=== PATIENT | female | born 1960 | race African-American/Black ===

== ENCOUNTER 2020-06-10 16:59 | Inpatient (IN) | payer OTHER ==
[~2020-06-10] VITALS: Ht 167.6 cm; Wt 121.6 kg
[2020-06-10] MEDS ORDERED: ONDANSETRON HCL 4MG/2ML INJ IV STA (17:19)
[2020-06-10] MEDS ORDERED: MORPHINE SULFATE 4 MG/ML CPJ (NOT FOR IM USE) IV STA (17:19)
[2020-06-10] MEDS ORDERED: NITROGLYCERIN OINT 1GM/INCH UDPKT TD ONE (17:30)
[2020-06-10] MEDS ORDERED: ENALAPRIL 1.25MG/ML VIAL 1ML IV NR (17:30)
[2020-06-10] MEDS ORDERED: MORPHINE SULFATE 4 MG/ML CPJ (NOT FOR IM USE) IV NR (17:30)
[2020-06-10] MEDS ORDERED: ENALAPRIL 2.5MG/2ML VIAL 2ML IV ONE (17:30)
[2020-06-10] MEDS ORDERED: NITROGLYCERIN OINT 1GM/INCH UDPKT TD NR (17:30)
[2020-06-10] MEDS ORDERED: ONDANSETRON HCL 4MG/2ML INJ IV NR (17:30)
[2020-06-10] MEDS ORDERED: ASPIRIN 81MG TABLET PO ONE (18:45)
[2020-06-10 19:16] LABS: CHLORIDE 103 mEq/L (98-107)
[2020-06-10 19:21] LABS: BASOPHILS % 0.9 % (0.0-2.0); EOSINOPHILS % 0.2 % (0.0-5.0); LYMPHOCYTES % 11.1 % (20.0-50.0); MEAN CORPUSCULAR HEMOGLOBIN 21.4 pg (28.0-32.0); MEAN CORPUSCULAR VOLUME 67.9 fL (81.0-99.0); MEAN PLATELET VOLUME 9.7 fl (7.4-10.4); MONOCYTES % 3.8 % (2.0-8.0); PLATELET 212 x1000/uL (130-400); RED CELL DISTRIBUTION WIDTH 18.8 % (11.6-14.6)
[2020-06-10] MEDS ORDERED: ACETAMINOPHEN 325MG TABLET PO ONE (19:45)
[2020-06-10 20:15] LABS: PLATELET ESTIMATE NORMAL
[2020-06-10] MEDS ORDERED: AMLODIPINE 10MG TABLET PO SCH (20:15)
[2020-06-10] MEDS ORDERED: ONDANSETRON HCL 4MG/2ML INJ IV PRN (20:15)
[2020-06-10] MEDS ORDERED: TRAZODONE HCL 50MG TABLET PO PRN (21:00)
[2020-06-10 21:47] LABS: *AMPHETAMINES SCREEN URINE NEGATIVE (NEGATIVE); *BARBITURATES SCREEN URINE NEGATIVE (NEGATIVE); *BENZODIAZEPINES SCREEN URINE NEGATIVE (NEGATIVE); *COCAINE SCREEN URINE NEGATIVE (NEGATIVE); METHADONE URINE SCREEN NEGATIVE (NEGATIVE); OPIATES URINE SCREEN NEGATIVE (NEGATIVE)
[2020-06-10 21:48] LABS: CANNABINOID URINE SCREEN NEGATIVE (NEGATIVE); PHENCYCLIDINE URINE SCREEN NEGATIVE (NEGATIVE)
[2020-06-10 23:10] VITALS: BP 161/80
[2020-06-10 23:15] VITALS: BP 161/80
[2020-06-11] MEDS: ACETAMINOPHEN 325MG TABLET PO PRN ×3 (01:37→20:48)
[2020-06-11] MEDS: HYDRALAZINE HCL 50MG TABLET PO SCH ×4 (01:38→22:05)
[2020-06-11] MEDS ORDERED: AMOX-494 MT (01:58)
[2020-06-11 04:00] VITALS: BP 141/76
[2020-06-11] MEDS: KETOROLAC 15MG/ML VIAL IV PRN ×2 (07:29→18:13)
[2020-06-11 07:52] LABS: BASOPHILS % 0.8 % (0.0-2.0); EOSINOPHILS % 0.4 % (0.0-5.0); HEMATOCRIT. 41.3 % (36.0-48.0); HEMOGLOBIN. 12.9 g/dL (12.0-16.0); LYMPHOCYTES % 21.1 % (20.0-50.0); MEAN CORPUSCULAR VOLUME 67.4 fL (81.0-99.0); MEAN PLATELET VOLUME 10.5 fl (7.4-10.4); MONOCYTES % 10.1 % (2.0-8.0); NEUTROPHILS % 67.6 % (40.0-76.0); PLATELET 202 x1000/uL (130-400); RED BLOOD CELL COUNT 6.13 mill/uL (4.2-5.4); RED CELL DISTRIBUTION WIDTH 18.7 % (11.6-14.6)
[2020-06-11 08:00] VITALS: BP 112/61
[2020-06-11 08:00] LABS: CHLORIDE 103 mEq/L (98-107)
[2020-06-11] MEDS: HEPARIN 5000 UNITS/ML VIAL SUBCUT SCH ×3 (08:55→21:54)
[2020-06-11 12:00] VITALS: BP 127/63
[2020-06-11 16:00] VITALS: BP 168/93
[2020-06-11 18:00] VITALS: BP 142/86
[2020-06-11 20:00] VITALS: BP 177/74
[2020-06-11] MEDS: AMLODIPINE 2.5MG TABLET PO SCH (20:49)
[2020-06-11] MEDS: TRAZODONE HCL 50MG TABLET PO SCH (20:49)
[2020-06-11] MEDS ORDERED: TRAZODONE HCL 50MG TABLET PO SCH (21:00)
[2020-06-12] VITALS (9 sets, daily range): BP systolic 135–186; BP diastolic 76–101
[2020-06-12] MEDS: KETOROLAC 15MG/ML VIAL IV PRN (00:44)
[2020-06-12] MEDS: ACETAMINOPHEN 325MG TABLET PO PRN ×2 (05:06→22:17)
[2020-06-12 06:18] LABS: CHLORIDE 107 mEq/L (98-107)
[2020-06-12 06:45] LABS: BASOPHILS % 0.4 % (0.0-2.0); EOSINOPHILS % 1.4 % (0.0-5.0); HEMATOCRIT. 40.3 % (36.0-48.0); HEMOGLOBIN. 12.5 g/dL (12.0-16.0); LYMPHOCYTES % 23.5 % (20.0-50.0); MEAN CORPUSCULAR HEMOGLOBIN 21.2 pg (28.0-32.0); MEAN CORPUSCULAR VOLUME 68.4 fL (81.0-99.0); MONOCYTES % 9.2 % (2.0-8.0); NEUTROPHILS % 65.5 % (40.0-76.0); RED CELL DISTRIBUTION WIDTH 18.5 % (11.6-14.6)
[2020-06-12] MEDS: DOCUSATE SODIUM 100MG CAPSULE PO SCH (09:20)
[2020-06-12] MEDS: BISACODYL 10MG SUPP PR NR ×2 (09:20→09:45)
[2020-06-12] MEDS: AMLODIPINE 2.5MG TABLET PO SCH (09:20)
[2020-06-12] MEDS: HEPARIN 5000 UNITS/ML VIAL SUBCUT SCH ×2 (09:21→20:51)
[2020-06-12] MEDS ORDERED: MAGNESIUM CITRATE 300ML SOLUTION PO NR (10:30)
[2020-06-12 11:36] LABS: PLATELET 166 x1000/uL (130-400)
[2020-06-12] MEDS ORDERED: TRAZ-251 PO (12:30)
[2020-06-12] MEDS ORDERED: AMLO5TAB88 PO (12:30)
[2020-06-12] MEDS ORDERED: DOCU-150 PO (12:30)
[2020-06-12] MEDS ORDERED: TOPUD PO (12:30)
[2020-06-12] MEDS ORDERED: HYDR-4134 PO (12:30)
[2020-06-12] MEDS: HYDRALAZINE HCL 25MG TABLET PO SCH ×2 (13:49→20:52)
[2020-06-12] MEDS: CLONIDINE 0.1MG TABLET PO PRN (17:20)
[2020-06-12] MEDS ORDERED: HYDR25TA PO (17:29)
[2020-06-12] MEDS: AMLODIPINE 5MG TABLET PO SCH (20:51)
[2020-06-12] MEDS: TRAZODONE HCL 50MG TABLET PO SCH (21:00)
[2020-06-13] VITALS: BP 155/84
[2020-06-13 04:00] VITALS: BP 133/64
[2020-06-13] MEDS: HYDRALAZINE HCL 25MG TABLET PO SCH (05:34)
[2020-06-13 06:34] LABS: CHLORIDE 106 mEq/L (98-107)
[2020-06-13 07:10] LABS: BASOPHILS % 0.6 % (0.0-2.0); EOSINOPHILS % 1.4 % (0.0-5.0); HEMATOCRIT. 38.6 % (36.0-48.0); LYMPHOCYTES % 17.7 % (20.0-50.0); MEAN CORPUSCULAR HEMOGLOBIN 21.1 pg (28.0-32.0); MEAN CORPUSCULAR VOLUME 68.2 fL (81.0-99.0); MEAN PLATELET VOLUME 9.4 fl (7.4-10.4); MONOCYTES % 7.9 % (2.0-8.0); NEUTROPHILS % 72.4 % (40.0-76.0); PLATELET 155 x1000/uL (130-400); RED BLOOD CELL COUNT 5.65 mill/uL (4.2-5.4); RED CELL DISTRIBUTION WIDTH 18.4 % (11.6-14.6)
[2020-06-13 08:00] VITALS: BP 164/96
[2020-06-13] MEDS: AMLODIPINE 5MG TABLET PO SCH (09:00)
[2020-06-13] MEDS: HEPARIN 5000 UNITS/ML VIAL SUBCUT SCH ×2 (09:00→10:08)
[2020-06-13] MEDS: DOCUSATE SODIUM 100MG CAPSULE PO SCH (10:09)
[2020-06-13] MEDS: CLONIDINE 0.1MG TABLET PO PRN (10:32)
[2020-06-13] MEDS ORDERED: HYDROCHLOROTHIAZIDE 25MG TABLET PO SCH (11:00)
[2020-06-13 11:47] VITALS: BP 119/79
== END 2020-06-13 13:15 | disposition home or self-care (01) | DRG 280 ==
LOC: ER 16:59 → 8WST 18:42 → EDBEDREQTM 18:45 → EDBEDREQ 18:45 → ENRESERV 20:31 → ER 23:08
PROVIDERS: ADMIT Internal Medicine; ATTEND Internal Medicine
PROC: 4A00X4Z Measurement of Central Nervous Electrical Activity, External Approach (ICD-10-PCS; principal; 2020-06-13)
DX: I21.A1 Myocardial infarction type 2 (principal); I50.31 Acute diastolic (congestive) heart failure; I16.1 Hypertensive emergency; Z68.41 Body mass index [BMI] 40.0-44.9, adult; I11.0 Hypertensive heart disease with heart failure; E87.5 Hyperkalemia; I27.20 Pulmonary hypertension, unspecified; E66.01 Morbid (severe) obesity due to excess calories; R26.0 Ataxic gait; M79.89 Other specified soft tissue disorders; R26.2 Difficulty in walking, not elsewhere classified; F32.9 Major depressive disorder, single episode, unspecified; F41.9 Anxiety disorder, unspecified; Z82.3 Family history of stroke; Z82.49 Family history of ischemic heart disease and other diseases of the circulatory system; Z79.899 Other long term (current) drug therapy
CPT/HCPCS: 36415; 70544; 70553; 71045; 80053; 80305; 83735; 83880; 84484; 85025; 93005; 93306; 93971; 95816; 96374; 97116; 97162; 97166; 97530; 97535; 99291; J1644; J1885; J2270; J2405; J3490; L0172